=== PATIENT | male | born 1930 | race Caucasian/White ===

== ENCOUNTER 2020-12-19 06:09 | Inpatient (IN) ==
[~2020-12-19 06:09] MED LIST: DIAZEPAM 5 MG TABLET PO ONE; SODIUM CHLORIDE 0.9% 1,000 ML IV SCH; ceFAZolin 1,000 MG VIAL IRRIG ONE; diphenhydrAMINE CAP 25 MG CAPSULE PO ONE
[2020-12-19] MEDS ORDERED: DIAZEPAM 5 MG TABLET ONE (06:50)
[2020-12-19] MEDS ORDERED: diphenhydrAMINE CAP 25 MG CAPSULE ONE (06:50)
[2020-12-19] MEDS ORDERED: LIDOCAINE 1% 20 ML VIAL ONE (07:11)
[2020-12-19] MEDS ORDERED: ceFAZolin 1,000 MG VIAL ONE (07:11)
[2020-12-19] MEDS ORDERED: TISSUE ADHESIVE 1 EACH APPLICATOR TOP ONE (07:11)
[2020-12-19] MEDS ORDERED: fentaNYL 100 MCG/2 ML VIAL ONE (07:12)
[2020-12-19] MEDS ORDERED: MIDAZOLAM 2 MG/2 ML VIAL ONE ×2 (07:12→09:04)
[2020-12-19] MEDS ORDERED: ONDANSETRON 4 MG/2 ML VIAL IV PRN (09:50)
[2020-12-19] MEDS ORDERED: ALUMINUM/MAGNES/SIMETH MAX STR 30 ML UDCUP PO PRN (09:50)
[2020-12-19] MEDS ORDERED: ZALEPLON 5 MG CAPSULE PO PRN (09:50)
[2020-12-19] MEDS ORDERED: ACETAMINOPHEN 325 MG TABLET PO PRN (19:32)
[2020-12-19] MEDS: MELATONIN 3 MG TABLET PO SCH (20:55)
[2020-12-19] MEDS: SIMVASTATIN 20 MG TABLET PO SCH (22:08)
[2020-12-19] MEDS: GLUCOSAMINE PO SCH (22:09)
[2020-12-19] MEDS: CYANOCOBALAMIN 500 MCG TABLET PO SCH (22:09)
[2020-12-19] MEDS: CHONDROITIN PO SCH (22:09)
[2020-12-19] MEDS: FINASTERIDE 5 MG TABLET PO SCH (22:09)
[2020-12-19] MEDS: OMEGA 3 ACID ETHYL ESTERS 1 GM CAPSULE PO SCH (22:09)
[2020-12-20 04:26] LABS: Basophils % 0.3 % (0.0-0.8); Eosinophils % 0.1 % (0.00-10.9); Hematocrit 41.9 VOL% (42.0-52.0); Hemoglobin 14.6 GM/DL (14.0-18.0); Immature Granulocytes % 0.3 %; Immature Granulocytes Absolute 0.02 #; Lymphocytes # 1.6 10*3/uL (1.4-4.0); Lymphocytes % 23.5 % (21.2-54.2); Mean Corpuscular HGB Conc 34.8 GM/DL (32-36); Mean Corpuscular Volume 98.4 FL (87-102); Mean Platelet Volume 9.6 FL (9.6-12.0); Monocytes % 14.6 % (1.7-12.7); Neutrophils % 61.2 % (38.7-73.9); Platelet Count 151 T/CUMM (130-400); Red Blood Count 4.26 MC/CUMM (3.8-5.5); Red Cell Distribution Width 14.8 % (9.3-17.3); White Blood Count 6.8 T/CUMM (4-12)
[2020-12-20 09:18] LABS: Calcium 8.9 MG/DL (8.5-10.1); Osmolality,Calculated 275.8 MOS/KG (273-304); Potassium 4.2 MMOL/L (3.5-5.1)
[2020-12-20] MEDS: ASPIRIN EC 81 MG TABLET PO SCH (10:01)
[2020-12-20] MEDS: MELATONIN 3 MG TABLET PO SCH (20:36)
[2020-12-20] MEDS: SIMVASTATIN 20 MG TABLET PO SCH (20:37)
[2020-12-20] MEDS: GLUCOSAMINE PO SCH (20:37)
[2020-12-20] MEDS: FINASTERIDE 5 MG TABLET PO SCH (20:37)
[2020-12-20] MEDS: CYANOCOBALAMIN 500 MCG TABLET PO SCH (20:37)
[2020-12-20] MEDS: CHONDROITIN PO SCH (20:37)
[2020-12-20] MEDS: OMEGA 3 ACID ETHYL ESTERS 1 GM CAPSULE PO SCH (20:37)
[2020-12-21 05:26] LABS: Basophils % 0.5 % (0.0-0.8); Eosinophils # 0.1 10*3/uL (0.0-0.87); Eosinophils % 0.8 % (0.00-10.9); Hematocrit 42.7 VOL% (42.0-52.0); Hemoglobin 15.3 GM/DL (14.0-18.0); Immature Granulocytes % 0.5 %; Immature Granulocytes Absolute 0.03 #; Lymphocytes # 1.2 10*3/uL (1.4-4.0); Mean Corpuscular HGB Conc 35.8 GM/DL (32-36); Mean Corpuscular Volume 98.4 FL (87-102); Mean Platelet Volume 9.6 FL (9.6-12.0); Monocytes % 16.4 % (1.7-12.7); Neutrophils % 61.8 % (38.7-73.9); Red Blood Count 4.34 MC/CUMM (3.8-5.5); Red Cell Distribution Width 15.1 % (9.3-17.3); White Blood Count 6.2 T/CUMM (4-12)
[2020-12-21 05:49] LABS: Calcium 8.4 MG/DL (8.5-10.1); Potassium 4.1 MMOL/L (3.5-5.1)
[2020-12-21 05:56] LABS: Platelet Count 115 T/CUMM (130-400)
[2020-12-21 06:04] LABS: Eosinophils 2 % (0-10); Lymphocytes 19 % (20-55); Platelet Estimate Decreased; Segmented Neutrophils 65 % (50-85); Total Cells Counted 100
[2020-12-21] MEDS: ASPIRIN EC 81 MG TABLET PO SCH (09:29)
[2020-12-21] MEDS ORDERED: KETOROLAC 30 MG/1 ML VIAL IV ONE (10:34)
[2020-12-21 12:29] LABS: Bilirubin,Urine Negative (Negative); Blood, Urine Small mg/dL (Negative); Glucose,Urine (UA) Negative (Negative); Ketones,Urine Negative (Negative); Mucus,Urine Occasional /LPF (Occasional); Nitrite,Urine Negative (Negative); Protein,Urine Negative; RBC,Urine 2 /HPF (0-4); Squamous Epithelial Cell,Urine Occasional /HPF (0-10); Urine Appearance CLEAR (Clear); Urine Color Straw (Yellow); Urine Specific Gravity 1.004 (1.001-1.035); Urine Urobilinogen < 2.0 EU/DL (0.2-1.0)
[2020-12-21] MEDS: SIMVASTATIN 20 MG TABLET PO SCH (22:21)
[2020-12-21] MEDS: OMEGA 3 ACID ETHYL ESTERS 1 GM CAPSULE PO SCH (22:23)
[2020-12-21] MEDS: MELATONIN 3 MG TABLET PO SCH (22:23)
[2020-12-21] MEDS: FINASTERIDE 5 MG TABLET PO SCH (22:23)
[2020-12-21] MEDS: GLUCOSAMINE PO SCH (22:24)
[2020-12-21] MEDS: CYANOCOBALAMIN 500 MCG TABLET PO SCH (22:24)
[2020-12-21] MEDS: CHONDROITIN PO SCH (22:24)
[2020-12-22 06:01] LABS: Basophils # 0.1 10*3/uL (0.0-0.2); Eosinophils # 0.1 10*3/uL (0.0-0.87); Eosinophils % 2.3 % (0.00-10.9); Hematocrit 40.6 VOL% (42.0-52.0); Hemoglobin 14.5 GM/DL (14.0-18.0); Immature Granulocytes % 0.4 %; Immature Granulocytes Absolute 0.02 #; Lymphocytes # 1.3 10*3/uL (1.4-4.0); Lymphocytes % 25.5 % (21.2-54.2); Mean Corpuscular HGB Conc 35.7 GM/DL (32-36); Neutrophils % 55.8 % (38.7-73.9); Platelet Count 116 T/CUMM (130-400); Red Cell Distribution Width 14.6 % (9.3-17.3); White Blood Count 5.1 T/CUMM (4-12)
[2020-12-22 06:10] LABS: Calcium 8.6 MG/DL (8.5-10.1); Osmolality,Calculated 283.5 MOS/KG (273-304)
[2020-12-22] MEDS ORDERED: BUPIVACAINE MPF 0.25% 30 ML VIAL ONE (06:12)
[2020-12-22] MEDS ORDERED: LIDOCAINE 1%/EPI INJ 20 ML VIAL ONE (06:12)
[2020-12-22] MEDS: KETOROLAC 30 MG/1 ML VIAL IV PRN ×2 (06:19→19:15)
[2020-12-22] MEDS ORDERED: ETOMIDATE 40 MG/20 ML VIAL IV ONE (07:24)
[2020-12-22] MEDS ORDERED: propofoL 200 MG/20 ML VIAL IV ONE (07:24)
[2020-12-22] MEDS ORDERED: fentaNYL 100 MCG/2 ML VIAL ONE (07:24)
[2020-12-22] MEDS ORDERED: LIDOCAINE 2% 5 ML VIAL ONE (07:24)
[2020-12-22] MEDS ORDERED: LACTATED RINGERS 1,000 ML IV SCH (07:30)
[2020-12-22] MEDS: ASPIRIN EC 81 MG TABLET PO SCH (11:11)
[2020-12-22] MEDS: FINASTERIDE 5 MG TABLET PO SCH (20:16)
[2020-12-22] MEDS: MELATONIN 3 MG TABLET PO SCH (20:17)
[2020-12-22] MEDS: SIMVASTATIN 20 MG TABLET PO SCH (20:17)
[2020-12-22] MEDS: OMEGA 3 ACID ETHYL ESTERS 1 GM CAPSULE PO SCH (20:18)
[2020-12-22] MEDS: CYANOCOBALAMIN 500 MCG TABLET PO SCH (20:18)
[2020-12-22] MEDS: GLUCOSAMINE PO SCH (20:23)
[2020-12-22] MEDS: CHONDROITIN PO SCH (20:23)
[2020-12-23] MEDS: KETOROLAC 30 MG/1 ML VIAL IV PRN ×2 (02:49→07:57)
[2020-12-23] MEDS: ASPIRIN EC 81 MG TABLET PO SCH (08:02)
[2020-12-23] MEDS: FINASTERIDE 5 MG TABLET PO SCH (20:14)
[2020-12-23] MEDS: CYANOCOBALAMIN 500 MCG TABLET PO SCH (20:15)
[2020-12-23] MEDS: SIMVASTATIN 20 MG TABLET PO SCH (20:15)
[2020-12-23] MEDS: GLUCOSAMINE PO SCH (20:15)
[2020-12-23] MEDS: MELATONIN 3 MG TABLET PO SCH (20:15)
[2020-12-23] MEDS: OMEGA 3 ACID ETHYL ESTERS 1 GM CAPSULE PO SCH (20:15)
[2020-12-23] MEDS: CHONDROITIN PO SCH (20:15)
[2020-12-24] MEDS: ASPIRIN EC 81 MG TABLET PO SCH (09:19)
[2020-12-24] MEDS: CYANOCOBALAMIN 500 MCG TABLET PO SCH (21:14)
[2020-12-24] MEDS: SIMVASTATIN 20 MG TABLET PO SCH (21:15)
[2020-12-24] MEDS: CHONDROITIN PO SCH (21:15)
[2020-12-24] MEDS: OMEGA 3 ACID ETHYL ESTERS 1 GM CAPSULE PO SCH (21:15)
[2020-12-24] MEDS: MELATONIN 3 MG TABLET PO SCH (21:15)
[2020-12-24] MEDS: FINASTERIDE 5 MG TABLET PO SCH (21:15)
[2020-12-24] MEDS: GLUCOSAMINE PO SCH (21:15)
[2020-12-25] MEDS: ASPIRIN EC 81 MG TABLET PO SCH (09:00)
[2020-12-25] MEDS ORDERED: MORPHINE 2 MG/1 ML SYRINGE IV ONE (11:03)
[2020-12-25] MEDS: CYANOCOBALAMIN 500 MCG TABLET PO SCH (20:53)
[2020-12-25] MEDS: OMEGA 3 ACID ETHYL ESTERS 1 GM CAPSULE PO SCH (20:53)
[2020-12-25] MEDS: FINASTERIDE 5 MG TABLET PO SCH (20:53)
[2020-12-25] MEDS: MELATONIN 3 MG TABLET PO SCH (20:53)
[2020-12-25] MEDS: SIMVASTATIN 20 MG TABLET PO SCH (20:54)
[2020-12-25] MEDS: GLUCOSAMINE PO SCH (21:42)
[2020-12-25] MEDS: CHONDROITIN PO SCH (21:42)
[2020-12-25] MEDS ORDERED: DOCUSATE SODIUM 100 MG CAPSULE PO PRN (23:05)
[2020-12-26 05:39] LABS: Basophils # 0.1 10*3/uL (0.0-0.2); Eosinophils # 0.2 10*3/uL (0.0-0.87); Eosinophils % 3.7 % (0.00-10.9); Hematocrit 37.8 VOL% (42.0-52.0); Hemoglobin 13.6 GM/DL (14.0-18.0); Immature Granulocytes % 0.3 %; Immature Granulocytes Absolute 0.02 #; Lymphocytes # 1.4 10*3/uL (1.4-4.0); Mean Corpuscular Volume 101.1 FL (87-102); Mean Platelet Volume 9.7 FL (9.6-12.0); Monocytes % 18.9 % (1.7-12.7); Neutrophils % 52.1 % (38.7-73.9); Platelet Count 131 T/CUMM (130-400); Red Blood Count 3.74 MC/CUMM (3.8-5.5); Red Cell Distribution Width 15.3 % (9.3-17.3); White Blood Count 5.7 T/CUMM (4-12)
[2020-12-26 06:07] LABS: Eosinophils 5 % (0-10); Lymphocytes 24 % (20-55); Platelet Estimate Normal; Segmented Neutrophils 53 % (50-85); Total Cells Counted 100
[2020-12-26 06:08] LABS: Hypochromasia Slight; Microcytosis Slight
[2020-12-26 06:39] LABS: Osmolality,Calculated 281.5 MOS/KG (273-304); Potassium 4.3 MMOL/L (3.5-5.1)
[2020-12-26 08:37] VITALS: BP 123/74
[2020-12-26] MEDS: ASPIRIN EC 81 MG TABLET PO SCH (09:57)
== END 2020-12-26 12:55 | disposition home health service (06) | DRG 243 ==
LOC: N.CL 06:09 → N.TELES 10:16
PROVIDERS: ADMIT Internal Medicine Cardiovascular Disease; ATTEND Internal Medicine Cardiovascular Disease

== ENCOUNTER 2020-12-29 19:55 | Inpatient (IN) ==
[2020-12-29] MEDS ORDERED: HEPARIN 5,000 UNIT/1 ML VIAL IV ONE (22:34)
[2020-12-29] MEDS ORDERED: MAGNESIUM SULF RIDER 2 GM/50 ML PREMIX IV PRN (22:36)
[2020-12-29] MEDS ORDERED: MAGNESIUM SULF RIDER 4 GM/100 ML PREMIX IV PRN (22:36)
[2020-12-29 22:45] LABS: Basophils # 0.1 10*3/uL (0.0-0.2); Basophils % 0.9 % (0.0-0.8); Eosinophils # 0.1 10*3/uL (0.0-0.87); Eosinophils % 2.2 % (0.00-10.9); Hematocrit 40.6 VOL% (42.0-52.0); Hemoglobin 14.1 GM/DL (14.0-18.0); Immature Granulocytes % 0.3 %; Immature Granulocytes Absolute 0.02 #; Lymphocytes # 1.4 10*3/uL (1.4-4.0); Lymphocytes % 20.9 % (21.2-54.2); Mean Corpuscular HGB Conc 34.7 GM/DL (32-36); Mean Corpuscular Volume 99.5 FL (87-102); Mean Platelet Volume 9.2 FL (9.6-12.0); Monocytes % 15.3 % (1.7-12.7); Neutrophils % 60.4 % (38.7-73.9); Platelet Count 197 T/CUMM (130-400); Red Blood Count 4.08 MC/CUMM (3.8-5.5); Red Cell Distribution Width 14.3 % (9.3-17.3); White Blood Count 6.5 T/CUMM (4-12)
[2020-12-29 22:56] LABS: INR 1.1; PT Patient Result 12.4 SECS (10.5-12.0)
[2020-12-29 23:02] LABS: Albumin 3.1 G/DL (3.4-5.0); Bilirubin,Total 0.9 MG/DL (0.20-1.00); Osmolality,Calculated 283.3 MOS/KG (273-304); Potassium 4.6 MMOL/L (3.5-5.1); Total Protein 6.5 G/DL (6.4-8.2)
[2020-12-29] MEDS: HEPARIN DRIP 25,000 UNITS/500 ML PREMIX IV SCH (23:12)
[2020-12-30] MEDS: SODIUM CHLORIDE 0.9% 1,000 ML IV SCH ×2 (01:42→19:45)
[2020-12-30] MEDS: ASPIRIN EC 81 MG TABLET PO SCH (10:39)
[2020-12-30 15:29] LABS: Basophils # 0.1 10*3/uL (0.0-0.2); Eosinophils # 0.2 10*3/uL (0.0-0.87); Eosinophils % 2.7 % (0.00-10.9); Immature Granulocytes % 0.5 %; Immature Granulocytes Absolute 0.03 #; Lymphocytes # 1.6 10*3/uL (1.4-4.0); Mean Corpuscular HGB Conc 35.1 GM/DL (32-36); Mean Corpuscular Volume 98.4 FL (87-102); Mean Platelet Volume 9.4 FL (9.6-12.0); Monocytes % 13.6 % (1.7-12.7); Neutrophils % 57.2 % (38.7-73.9); Platelet Count 196 T/CUMM (130-400); Red Blood Count 3.76 MC/CUMM (3.8-5.5); Red Cell Distribution Width 14.3 % (9.3-17.3); White Blood Count 6.2 T/CUMM (4-12)
[2020-12-30] MEDS: VANCOMYCIN INJ 1,000 MG in SODIUM CHLORIDE 0.9% 250 ML IV SCH (17:10)
[2020-12-30] MEDS ORDERED: SULFAMETHOX/TRIMETHOPRIM 800-160 MG TABLET PO SCH (21:00)
[2020-12-31] MEDS: HEPARIN DRIP 25,000 UNITS/500 ML PREMIX IV SCH (04:19)
[2020-12-31] MEDS: VANCOMYCIN INJ 1,000 MG in SODIUM CHLORIDE 0.9% 250 ML IV SCH (04:20)
[2020-12-31 08:53] LABS: Albumin 2.7 G/DL (3.4-5.0); Bilirubin,Total 0.7 MG/DL (0.20-1.00); Calcium 8.2 MG/DL (8.5-10.1); Osmolality,Calculated 274.7 MOS/KG (273-304); Total Protein 5.1 G/DL (6.4-8.2)
[2020-12-31] MEDS: APIXABAN 5 MG TABLET PO SCH ×2 (09:31→21:48)
[2020-12-31] MEDS: ASPIRIN EC 81 MG TABLET PO SCH (09:32)
[2020-12-31 09:45] LABS: Basophils # 0.1 10*3/uL (0.0-0.2); Basophils % 0.9 % (0.0-0.8); Eosinophils # 0.2 10*3/uL (0.0-0.87); Eosinophils % 2.6 % (0.00-10.9); Hematocrit 44.7 VOL% (42.0-52.0); Immature Granulocytes % 0.3 %; Immature Granulocytes Absolute 0.02 #; Lymphocytes # 1.4 10*3/uL (1.4-4.0); Mean Corpuscular Volume 92.7 FL (87-102); Mean Platelet Volume 9.3 FL (9.6-12.0); Monocytes % 12.3 % (1.7-12.7); Neutrophils % 61.9 % (38.7-73.9); Platelet Count 232 T/CUMM (130-400); Red Cell Distribution Width 12.9 % (9.3-17.3); White Blood Count 6.5 T/CUMM (4-12)
[2020-12-31 09:51] LABS: Hemoglobin 15.2 GM/DL (14.0-18.0); Red Blood Count 4.82 MC/CUMM (3.8-5.5)
[2020-12-31] MEDS: TAMSULOSIN 0.4 MG CAPSULE PO SCH (11:30)
[2020-12-31] MEDS: SODIUM CHLORIDE 0.9% 1,000 ML IV SCH (17:49)
[2020-12-31] MEDS ORDERED: FINASTERIDE 5 MG TABLET PO SCH (21:00)
[2020-12-31] MEDS: OMEGA 3 ACID ETHYL ESTERS 1 GM CAPSULE PO SCH (21:22)
[2020-12-31] MEDS: SULFAMETHOX/TRIMETHOPRIM 800-160 MG TABLET PO SCH (21:23)
[2020-12-31] MEDS: MELATONIN 3 MG TABLET PO SCH (21:23)
[2020-12-31] MEDS: CYANOCOBALAMIN 500 MCG TABLET PO SCH (21:24)
[2020-12-31] MEDS: NON-FORMULARY MEDICATION (Glucosamine-Chondroitin 750-600 mg Tablet) PO SCH (21:24)
[2020-12-31] MEDS: SIMVASTATIN 20 MG TABLET PO SCH (21:24)
[2021-01-01 06:40] LABS: Basophils # 0.1 10*3/uL (0.0-0.2); Basophils % 0.9 % (0.0-0.8); Eosinophils # 0.2 10*3/uL (0.0-0.87); Eosinophils % 1.7 % (0.00-10.9); Hematocrit 39.7 VOL% (42.0-52.0); Hemoglobin 13.6 GM/DL (14.0-18.0); Immature Granulocytes % 0.2 %; Immature Granulocytes Absolute 0.02 #; Lymphocytes # 1.3 10*3/uL (1.4-4.0); Lymphocytes % 14.2 % (21.2-54.2); Mean Corpuscular HGB Conc 34.3 GM/DL (32-36); Mean Corpuscular Volume 92.5 FL (87-102); Mean Platelet Volume 9.4 FL (9.6-12.0); Platelet Count 213 T/CUMM (130-400); Red Blood Count 4.29 MC/CUMM (3.8-5.5); Red Cell Distribution Width 13.1 % (9.3-17.3)
[2021-01-01 06:42] LABS: Calcium 8.4 MG/DL (8.5-10.1); Osmolality,Calculated 276.5 MOS/KG (273-304)
[2021-01-01 06:43] LABS: White Blood Count 8.8 T/CUMM (4-12)
[2021-01-01 06:49] LABS: Anisocytosis 1+; Ovalocytes Few; Platelet Estimate Normal
[2021-01-01] MEDS: ASPIRIN EC 81 MG TABLET PO SCH (10:07)
[2021-01-01] MEDS: TAMSULOSIN 0.4 MG CAPSULE PO SCH ×2 (10:08→20:48)
[2021-01-01] MEDS: SULFAMETHOX/TRIMETHOPRIM 800-160 MG TABLET PO SCH ×2 (10:09→20:49)
[2021-01-01] MEDS: APIXABAN 5 MG TABLET PO SCH ×2 (13:03→20:49)
[2021-01-01] MEDS: SODIUM CHLORIDE 0.9% 1,000 ML IV SCH (16:30)
[2021-01-01] MEDS: DUTASTERIDE 0.5 MG CAPSULE PO SCH (16:53)
[2021-01-01] MEDS: MELATONIN 3 MG TABLET PO SCH (20:48)
[2021-01-01] MEDS: CYANOCOBALAMIN 500 MCG TABLET PO SCH (20:49)
[2021-01-01] MEDS: SIMVASTATIN 20 MG TABLET PO SCH (20:49)
[2021-01-01] MEDS: OMEGA 3 ACID ETHYL ESTERS 1 GM CAPSULE PO SCH (20:49)
[2021-01-01] MEDS: NON-FORMULARY MEDICATION (Glucosamine-Chondroitin 750-600 mg Tablet) PO SCH (20:52)
[2021-01-02] MEDS: SULFAMETHOX/TRIMETHOPRIM 800-160 MG TABLET PO SCH (08:46)
[2021-01-02] MEDS: DUTASTERIDE 0.5 MG CAPSULE PO SCH (08:47)
[2021-01-02] MEDS: ASPIRIN EC 81 MG TABLET PO SCH (08:47)
[2021-01-02] MEDS: APIXABAN 5 MG TABLET PO SCH (08:48)
[2021-01-02] MEDS: TAMSULOSIN 0.4 MG CAPSULE PO SCH (08:48)
[2021-01-02] MEDS ORDERED: FAMOTIDINE 20 MG/2 ML VIAL IV SCH (11:30)
[2021-01-02 12:12] VITALS: BP 115/56
[2021-01-07] MEDS ORDERED: APIXABAN 5 MG TABLET PO SCH (09:00)
== END 2021-01-02 16:18 | disposition home or self-care (01) | DRG 920 ==
LOC: N.ED 19:55 → N.EDINP 23:10 → N.TELEN 23:57
PROVIDERS: ADMIT Internal Medicine Cardiovascular Disease; ATTEND Internal Medicine Cardiovascular Disease